=== PATIENT | female | born 1965 | race Caucasian/White ===

== ENCOUNTER 2024-11-27 16:56 | Emergency (ER) | payer OTHER, SELFPAY ==
[2024-11-27 16:57] VITALS: BP 172/69; PULSE 86; RESP 18; TEMP 36.1; O2SAT 97; BMI 30.2
--- NOTE | 2024-11-27 17:01 | EX.ED.GENINJ ---
HPI History of Present Illness Chief Complaint: Laceration Detail of Chief Complaint: Laceration right index finger over the PIP joint Informant: patient Onset/Context/Timing Onset: Hours Mechanism/Context: Incised (Cut on the top of kin.) Location of pain/injuries: Right hand Current Severity: Gone Maximum Severity: Mild Worsened by: Injury Relieved by: Not applicable Associated Symptoms Associated Symptoms: Negative for Parasthesias, Weakness, Loss of function or Inability to ambulate Narrative Narrative: Patient is 59-year-old [id number] female presents with laceration to her right index finger radial side of the PIP joint. Sensations intact. Capillary fill is normal. There is no laxity of the collateral ligaments. The extensor indices tendon as well as the flexor forearm profundus and flexor digitorum superficialis are intact. Prior similar symptoms: No Recent Illness/Hospitalization: No PFSH PFSH Medical History (Updated 11/27/24 @ 17:[address] Jasiel Tanner MD) Anxiety Encounter for wellness examination in adult Pterygium of right eye Hives Bone fracture Home Medications ?Medication ?Instructions ?Recorded ?Last Taken ?Type escitalopram oxalate 10 mg tablet 10 mg PO DAILY #90 tabs 08/16/24 Unknown Rx Allergy/AdvReac Type Severity Reaction Status Date / Time No Known Allergies Allergy Verified 11/27/24 16:56 Family History Father Cancer Lung Myocardial infarction Mother Hypertension Diabetes Surgical History (Updated 11/27/24 @ 17:06 by Suyapa Willson) History of cholecystectomy Social History Smoking Status: Former smoker alcohol intake: never ROS ROS ED Constitutional Constitutional ED: Denies chills or fever(s) Integumentary Reports other Details: Laceration right index finger Neurologic Neurologic: Denies paresthesias or weakness Hematologic/Lymphatic Hematologic/Lymphatic: Denies easy bleeding or easy bruising EXAM Physical Exam Const Vital Signs: 11/27/24 16:57 Temperature 97 F L Temperature Source Temporal Pulse Rate 86 Respiratory Rate 18 Blood Pressure 172/69 H Blood Pressure Mean 103 Pulse Ox 97 Positive well nourished and well developed General Appearance ED: well developed and NAD HEENT HEENT Narrative: Head is atraumatic normocephalic. Ears normal. Nares patent. Eyes PERRL and EOMs intact bilaterally Resp normal respiratory effort Cardio regular rhythm Rate: regular rate Extremity full ROM; Negative for normal to inspection Extremity Narrative: Median, radial ulnar function intact. Sensations intact. Normal capillary refill. Laceration PIP joint. Length of laceration 2.2 cm. The tendon was not visible. Neuro oriented x3 and CN's II-XII intact bilaterally Balaji Coma Scale: document GCS findings Spontaneous Obeys Commands Oriented 15 Sensorium / Orientation: alert Psych mental status grossly normal and thought process normal PROC Procedures Other Procedures Procedure(s): Patient was anesthetized by local infiltration. Total of 2 cc of 1% lidocaine. Wound was cleansed. Using 4 Ethilon 4 simple interrupted sutures were placed with good cosmesis he dismissed as his MDM MDM MDM Narrative Medical decision making narrative: Patient will require repair. Please see procedure note. Imaging is not required. Discharge Plan Triage Chief Complaint: Laceration ED Provider: Jasiel Tanner Dx/Rx/DC Orders Clinical Impression: Laceration of right index finger, Elevated blood-pressure reading without diagnosis of hypertension Instructions: ED Laceration, Hand: All Closures Prescriptions: No Action escitalopram oxalate 10 mg tablet 10 mg PO DAILY Qty: 90 3RF Primary Care Provider: Martha Yoon Referrals: Martha Yoon MD [[facility]] - 10-14 Days suture removal Activity Restrictions/Additional Instructions: 1. Keep wound clean and dry for the next 48 hours 2. Apply bacitracin ointment twice a day Print Language: Kinyarwanda Disposition Disposition: Home, Self Care
[2024-11-27] MEDS: Lidocaine 1% (20 ml mdv) 20 ML Vial INFILT (17:05)
[2024-11-27 17:33] VITALS: BP 118/75; PULSE 66; RESP 12; TEMP 37.1; O2SAT 100
== END 2024-11-27 17:34 | disposition home or self-care (01) ==
LOC: ED 17:07
PROVIDERS: Emergency Provider Emergency Medicine; PCP Internal Medicine; Visit Provider Emergency Medicine
DX: S61.210A Laceration without foreign body of right index finger without damage to nail, initial encounter (principal); W26.8XXA Contact with other sharp object(s), not elsewhere classified, initial encounter; R03.0 Elevated blood-pressure reading, without diagnosis of hypertension; F41.9 Anxiety disorder, unspecified; Z79.899 Other long term (current) drug therapy; Z87.891 Personal history of nicotine dependence
CPT/HCPCS: 12001; 99284